=== PATIENT | male | born 1955 | race Caucasian/White ===

== ENCOUNTER 2021-06-24 05:42 | Emergency (ER) | payer MEDICARE, SELFPAY ==
[2021-06-24 05:49] VITALS: BP 184/96; PULSE 76; RESP 20; TEMP 35.9; O2SAT 100; BMI 30.8
--- NOTE | 2021-06-24 06:27 | W.ED.GENADLT ---
HPI - General Adult General: Chief complaint: Urogenital-Male Stated complaint: Discharge and Believes he has STD Time Seen by Provider: 06/24/21 06:15 History of Present Illness: HPI narrative: CC: Penile discharge and urethritis HPI: [65]yo sexually male patient presenting to the new onset thick penile discharge and dysuria x 3 days. Symptoms have not improved since onset. No pruritus or hematuria. Sexually active with 1 partner that was recently tested positive for STI, though unknown. No symptoms of dysuria/hematuria/polyuria. Denies fever/chill, abdominal pain, nausea/vomiting, or problems with bowel movements. Onset: 3days ago Duration: ongoing Location: home Severity: mild/moderate Review of Systems Narrative: Constitutional: No fever, no chills. HEENT: No vision changes CV: No chest pain, no palpitations PULM: No productive cough, no dyspnea. GI: No abdominal pain, no N/V/D. : + penile discharge and dysuria MSKEL: No muscle pain SKIN: No new rashes, no lesions. NEURO: No headache, no focal weakness. HEME: No visible bruises PSYCH: Normal mood Physical Exam Narrative: EXAM NARRATIVE: Head: Atraumatic Eyes: PERRL, conjunctiva without injection, eyes tracking ENT: Mucous membrane moist NECK: Supple without lymphadenopathy LUNGS: LCTAB CV: RRR ABDOMEN: Soft, nontender EXTREMITY: Normal ROM SKIN: No rash or erythema NEURO: Awake and alert. No focal weakness PSYCH: Cooperative mood and affect Exam: No signs of vesicles on the penile shaft/glans, no visible discharge from the external meatus, no glan erythema, no testicular tenderness to palpation, vertical testicular lie, + cremasteric reflex, no inguinal lymphadenopathy Course Vital Signs: Vital signs: Vital Signs Temperature 97.6 F 06/24/21 07:26 Pulse Rate 94 06/24/21 07:26 Respiratory Rate 16 06/24/21 07:26 Blood Pressure 172/96 06/24/21 07:26 Pulse Oximetry 97 06/24/21 07:26 MDM - General Adult MDM Narrative: Medical decision making narrative: [65]yo patient with no significant medical history who presents with dysuria + penile discharge. exam is unremarkable. No visible external lesions. No discharge seen at the penile urethral meatus. Exam and history not consistent with herpes, syphilis, epididymo-orchitis, balanoposthitis, deep space infection, prostatitis, or acute abdomen. Interventions: Ceftriaxone 500mg IM [6:28am] On reassessment, the patient is HDS, afebrile in no acute distress. Findings most likely STI which was discussed with the patient. Patient agrees to follow up on G/C testing. In the ED, the patient has been able to tolerate PO and is ambulating without significant groin pain. Patient declined HSV, Syphilis, and HIV testing today after counseling. Rx doxycycline 100mg BID x 14 days Disposition: Discharge. Counseled regarding safe sex practices and partner notification/testing. Discussed return precautions including safe sex and STI pevention techniques. Given clinic or primary care follow up within 48 hours. Given strict return precautions for any fever/chill, intractable vomiting, dehydration, worsening pain or any new or concerning issues. Discharge Plan Discharge Patient Disposition: Home Clinical Impression: STI (sexually transmitted infection) Condition: Stable Prescriptions: New doxycycline hyclate 100 mg capsule 100 mg PO BID 14 Days Qty: 28 RF: 0 Discharge Orders: Discharge ED (Routine); Ordered 06/24/21 Ordered By: Ann-Marie Umana Discharge Diet: Advance as tolerated Discharge Activity: Resume usual activity Activity Restrictions/Additional Instructions: Please follow up with PCP in 2 weeks for testing for sysphilis, HIV, HSV if symptoms do not improve. Come back if you ahve any issues. Coding Level of Care Code ED Stroke Program Coordinator for Maty Puckett
[2021-06-24 07:26] VITALS: BP 172/96; PULSE 94; RESP 16; TEMP 36.4; O2SAT 97
== END 2021-06-24 07:29 | disposition home or self-care (01) ==
PROVIDERS: Emergency Provider Emergency Medicine
DX: A64 Unspecified sexually transmitted disease (principal)
CPT/HCPCS: 96372; 99283; J0696

== ENCOUNTER → 2023-05-06 13:56 | Outpatient (BNVA) | payer MEDICARE, SELFPAY | PROVIDERS: PCP Family Medicine; Visit Provider Family Medicine | DX: I10 Essential (primary) hypertension (principal) | CPT/HCPCS: 85025; 87491; 87591 ==

== ENCOUNTER → 2023-10-31 13:45 | Outpatient (BNVA) | payer MEDICARE, SELFPAY | PROVIDERS: PCP Family Medicine; Visit Provider Family Medicine | DX: I10 Essential (primary) hypertension (principal) | CPT/HCPCS: 80053; 85025 ==

== ENCOUNTER 2024-05-24 00:33 | Inpatient (IN) | payer MEDICARE, SELFPAY ==
[2024-05-24] VITALS (57 sets, daily range): BP systolic 104–187; BP diastolic 62–122; PULSE 57–94; RESP 10–31; TEMP 35.9–37.1; O2SAT 90–99; BMI 32.1; BMI 33.7
--- NOTE | 2024-05-24 00:32 | ECG_ITS ---
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 Measurements Intervals [place] Rate: 93 P: 65 AR: 203 QRS: 6 QRSD: 122 T: 51 QT: 372 QTc: 463 Interpretive Statements SINUS RHYTHM ST ELEVATION IN LATERAL LEADS WITH ST DEPRESSIONS SEEN IN INFERIOR LEADS. MYOCARDIAL INJURY PATTERN MODERATE INTRAVENTRICULAR CONDUCTION DELAY [110+ ms QRS DURATION] No previous ECG available for comparison Electronically Signed On 05-24-2024 1:35:35 CDT by Liborio Ayon M.D. [id number]
--- NOTE | 2024-05-24 00:45 | XRR_ITS ---
PROCEDURE INFORMATION: Exam: XR Chest Exam date and time: 05/24/2024 12:45 AM Age: 68 years old Clinical indication: Chest pressure; Patient HX: C/O chest pain. Postive st changes. ; Additional info: Cp TECHNIQUE: Imaging protocol: Radiologic exam of the chest. Views: 1 view. COMPARISON: No relevant prior studies available. FINDINGS: Lungs: Unremarkable. No consolidation. Pleural spaces: Unremarkable. No pleural effusion. No pneumothorax. Heart/Mediastinum: Unremarkable. No cardiomegaly. Bones/joints: Unremarkable. XR/XR chest 1V portable [id number] IMPRESSION: No acute findings.
[2024-05-24 01:09] LABS: Basophils % 0.5 %; Eosinophils # 0.3 10^3/uL (0.0-0.8); Eosinophils % 4.4 %; Hematocrit 42.5 % (37-53); Lymphocytes % 31.1 %; Mean Corpuscular HGB Conc 33.6 g/dL (30-55); Mean Corpuscular Hemoglobin 31.6 pg (27-33); Mean Corpuscular Volume 93.8 fl (82-101); Mean Platelet Volume 9.5 fL (7.4-10.4); Monocytes # 0.5 10^3/uL (0.2-0.9); Monocytes % 7.2 %; Neutrophils # 3.72 10^3/uL (1.8-7.7); Neutrophils % 56.6 %; Nucleated Red Blood Cells % 0 %; Platelet Count 249 10^3/cmm (157-399); Red Blood Count 4.53 10^6/uL (3.85-5.65); Red Cell Distribution Width 12.3 % (12.1-15.1); White Blood Count 6.56 10^3/uL (3.29-11.43)
--- NOTE | 2024-05-24 01:11 | W.ED.CHESTPA ---
HPI - Chest Pain General: Chief Complaint: Chest Pain Stated Complaint: Chest Pains Time Seen by Provider: 05/24/24 01:07 History of Present Illness: 68-year-old male with no prior history of coronary disease. He presents with chest discomfort wrapping around his chest and going into his shoulders. It started about an hour and a half prior to arrival. His EKG was done in triage, changes noted by me to be indicative of cardiac ischemia, and Veneer Production Machine Operator was activated. Cardiology was consulted on the patient's arrival after EKG obtained. Related Data Previous Rx's Medication Instructions Recorded cyclobenzaprine 10 mg tablet 10 mg PO BID PRN muscle spasm 90 10/31/23 days #180 tabs sildenafil 100 mg tablet (Viagra) 100 mg PO DAILY PRN sexual 03/10/24 activity #20 tabs Allergies Allergy/AdvReac Type Severity Reaction Status Date / Time No Known Allergies Allergy Verified 05/24/24 00:54 [facility] PFSH: Medical History Osteoarthritis Erectile dysfunction Social History Smoking and tobacco/nicotine status: current every day tobacco/nicotine user cigarettes Physical Exam Const: GENERAL APPEARANCE: cooperative, in distress and ill appearing; not frail appearing HENMT: COMMON NORMALS: normocephalic, atraumatic and Normal external nose present HEAD & SCALP: normocephalic and atraumatic FACE & SINUS: normal facial exam and face symmetric NOSE: Normal external nose present Eye: COMMON NORMALS: Equal, round and reactive pupils present and EOMs intact bilaterally PUPIL: Yes Equal, round and reactive pupils present Neck/C-Spine: GENERAL: Yes trachea midline Chest: CHEST: Yes Symmetrical chest wall rise Resp: COMMON NORMALS: clear to auscultation bilaterally EFFORT & INSPECTION: Yes symmetric chest movement, Yes tachypneic and Yes labored AUSCULTATION: clear to auscultation bilaterally Cardio: COMMON NORMALS: regular rate and regular rhythm RATE: regular rate RHYTHM: regular rhythm GI: COMMON NORMALS: Normal to inspection, nondistended, normoactive bowel sounds present Extremity: COMMON NORMALS: no pedal edema Neuro: LAURIE COMA SCALE: document GCS findings [place] coma scale eye opening: Spontaneous Laurie coma scale verbal response: Orientated [place] coma scale motor response: Obey commands Laurie coma scale total score: 15 SENSORY EXAM: Yes extremities (intact) Psych: COMMON NORMALS: speech normal SPEECH: Yes normal speech Skin: COMMON NORMALS: no rashes or lesions noted GENERAL SKIN EXAM: no rashes or lesions noted Course Vital Signs: Vital signs: Vital Signs Temperature 97.9 F 05/25/24 00:00 Pulse Rate 64 05/25/24 00:00 Respiratory Rate 14 05/25/24 00:00 Blood Pressure 161/81 05/25/24 00:00 Pulse Oximetry 95 05/25/24 00:00 Oxygen Delivery Me thod Room Air 05/25/24 00:00 Oxygen Flow Rate 2 05/24/24 01:17 MDM - Chest Pain Medical Decision Making Currently patient is mildly short of breath. His pain is much improved. He is receiving morphine, Zofran, aspirin. Veneer Production Machine Operator was activated after EKG was completed. Attempting to get second IV access now. The patient has had heparin, Plavix, chewable aspirin. Chest x-ray is nonacute. CBC is normal. Cardiology is at bedside. Lab Data 05/24/24 18:00 05/24/24 18:00 Radiology Impressions Chest X-Ray 05/24/24 00:45 IMPRESSION: No acute findings. Laboratory Results WBC 6.56 10^3/uL (3.29-11.43) 05/24/24 01:03 RBC 4.53 10^6/uL (3.85-5.65) 05/24/24 01:03 Hgb 14.30 g/dL (11.27-16.99) 05/24/24 01:03 Hct 42.5 % (37-53) 05/24/24 01:03 MCV 93.8 fl (82-101) 05/24/24 01:03 MCH 31.6 pg (27-33) 05/24/24 01:03 MCHC 33.6 g/dL (30-55) 05/24/24 01:03 RDW 12.3 % (12.1-15.1) 05/24/24 01:03 Plt Count 249 10^3/cmm (157-399) 05/24/24 01:03 MPV 9.5 fL (7.4-10.4) 05/24/24 01:03 Neut % (Auto) 56.6 % 05/24/24 01:03 Lymph % (Auto) 31.1 % 05/24/24 01:03 Alexander % (Auto) 7.2 % 05/24/24 01:03 Eos % (Auto) 4.4 % 05/24/24 01:03 Baso % (Auto) 0.5 % 05/24/24 01:03 Neut # (Auto) 3.72 10^3/uL (1.8-7.7) 05/24/24 01:03 Lymph # (Auto) 2.0 10^3/uL (0.8-4.8) 05/24/24 01:03 Alexander # (Auto) 0.5 10^3/uL (0.2-0.9) 05/24/24 01:03 Eos # (Auto) 0.3 10^3/uL (0.0-0.8) 05/24/24 01:03 Baso # (Auto) 0.0 10^3/uL (0.0-0.1) 05/24/24 01:03 Nucleated RBC % (auto) 0 % 05/24/24 01:03 Nucleated RBCs # 0.0 /100WBC 05/24/24 01:03 Sodium 138 mmol/L (136-145) 05/24/24 01:03 Potassium 3.8 mmol/L (3.5-5.1) 05/24/24 01:03 Chloride 99 mmol/L (98-107) 05/24/24 01:03 Carbon Dioxide 25 mmol/L (22-29) 05/24/24 01:03 Anion Gap 17.8 (5-19) 05/24/24 01:03 BUN 13 mg/dL (8-23) 05/24/24 01:03 Creatinine 1.1 mg/dL (0.7-1.2) 05/24/24 01:03 GFR Calculation 66.6 mL/min (90-130) L 05/24/24 01:03 Glucose 132 mg/dL (65-115) H 05/24/24 01:03 Calculated Osmolality 288 mOsm/kg (285-295) 05/24/24 01:03 Calcium 9.1 mg/dL (8.5-10.5) 05/24/24 01:03 Troponin T Baseline 22 ng/L (0-15) H 05/24/24 01:03 All radiology interpretation(s) finalized by discharge Discharge Plan Discharge Patient Disposition: Admitted As Inpatient Admit Provider: Liborio Ayon Clinical Impression: STEMI (ST elevation myocardial infarction) Condition: Stable Coding Level of Care Code ED Tire Tester for Maty Puckett
--- NOTE | 2024-05-24 01:13 | P.HP_ITS ---
Providers/Chief Complaint 2 Admitting Physician: Liborio Ayon MD Primary Care Provider: Patrick Samuel MD Chief Complaint: Chest Pains History of Present Illness Andrea Mora is a 68 year old male who has presented with the acute onset substernal chest pain. It is radiating to the arms. Initially was severe and has improved some. EKG showing ST elevation in lateral leads with reciprocal changes in inferior leads. Review of Systems 2 Narrative: CONSTITUTIONAL: No fever chills weight loss or gain or night sweats. [] HEENT: Normocephalic, atraumatic.[] RESPIRATORY: Shortness of breath CARDIOVASCULAR: Chest pain, shortness of breath GI: no nausea vomiting diarrhea. [] SR. PAYROLL MANAGER: No numbness, tingling, weakness or loss of function in any part of the body. [] Medications/Allergies Home Medications Medication Instructions Recorded Confirmed Last Taken Type cyclobenzaprine 10 mg tablet 10 mg PO BID PRN muscle spasm 90 10/31/23 10/31/23 Unknown Rx days #180 tabs sildenafil 100 mg tablet (Viagra) 100 mg PO DAILY PRN sexual 03/10/24 Unknown Rx activity #20 tabs Allergies Allergy/AdvReac Type Severity Reaction Status Date / Time No Known Allergies Allergy Verified 05/24/24 00:54 PFSH Acute 2 PFSH: Medical History Osteoarthritis Erectile dysfunction Social History Smoking and tobacco/nicotine status: current every day tobacco/nicotine user cigarettes Vitals/I&O/Wt Last Vital Signs Temp 98.1 F 05/24/24 00:49 Pulse 94 05/24/24 00:49 Resp 31 H 05/24/24 00:49 BP 179/97 05/24/24 00:49 Pulse Ox 95 05/24/24 00:49 O2 Del Method Room Air 05/24/24 00:49 Weight last 48 hrs Weight 250 lb Physical Exam 2 Narrative: GENERAL: Patient is alert, awake and oriented x3. [] NECK: No jugular vein distension. [] HEENT: No cyanosis. No icterus. No pallor. [] HEART: Regular S1 and S2. No murmur, rub or gallop. [] LUNGS: Clear to auscultate bilaterally. [] CENTRAL NERVOUS SYSTEM: Grossly nonfocal. [] EXTREMITIES: Lower extremities with 1+ edema bilaterally. Data 05/24/24 01:03 05/24/24 01:03 A&P Assessment and plan (1) STEMI (ST elevation myocardial infarction): (2) Essential hypertension: Plan Patient has presented with typical chest pain symptoms with EKG changes consistent with acute lateral wall ST elevation GA. We will proceed with emergent cardiac catheterization with possible PCI. Risks and benefits of the procedure have been discussed with patient. He understands these and wants to proceed. Patient loaded with aspirin, Plavix and heparin bolus. Will order echocardiogram. Attestations 2 Medical Necessity Statement*: Care expected to cross 2 midnights. Patient has presented with acute lateral wall ST elevation GA. 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 Coding Level of Care Code Acute Code for [facility] Diagnoses STEMI (ST elevation myocardial infarction) I21.3 Essential hypertension I10
[2024-05-24] MEDS: heparin 5,000 unit/mL INJ 1 mL 4000 UNIT IVP (01:18)
--- NOTE | 2024-05-24 01:20 | XACV_ITS ---
Exam Room: [facility] Ht: 188 cm Wt: 113 kg BSA: 2.46 m2 Gender: Male : 1955 Any Known Allergies: No known allergies Exam Priority: Routine Procedure(s): Procedure Description: Coronary angiogram Procedure Description: Percutaneous coronary intervention Procedure Description: Diagnostic procedure Procedure Description: PCI procedure Procedure Description: Drug Eluting Coronary Stent Procedure Description: PTCA Procedure Description: Miscellaneous Procedure Description: ACT Procedure Description: Coronary Angiography Suresh PAREDES; Diagnostic Cath Status: Emergency Diagnostic Findings * INDICATION: 68-year-old man who presented with acute onset chest pain. The EKG is consistent with lateral wall ST elevation HI. Cardiac Shop Firer/Fireman emergently activated for cardiac cath with possible PCI. * Left Main has no significant disease. * Circumflex has no significant disease. * Right Coronary Artery has mild luminal irregularities. * Proximal Left Anterior Descending to Mid Left Anterior Descending: moderate 40-50% stenosis, RANJITH: 3 flow. It gives rise to medium sized second diagonal artery that has a 99% stenosis. This is culprit vessel for lateral wall ST elevation HI. * Coronary angiography shows right dominance. PCI Status: Emergency PCI Indication: STEMI - Immediate PCI for STEMI Interventional Findings * Procedure detail: We engaged left main artery with XB 3.5 guide catheter. IV heparin was administered to maintain anticoagulation. 0.014 run-through guidewire was used to cross the subtotally occluded diagonal artery stenosis. We predilated the stenosis with 2.25 x 12 mm semicompliant balloon. This was followed by placement of 2.5 x 12 mm resolute Margaret drug-eluting stent. At this time final angiogram was performed that showed excellent stent expansion, no residual stenosis and RANJITH-3 flow. Guidewire and guide catheter were removed. Patient left the Shop Firer/Fireman in a stable condition.. * 2nd Diagonal: 99% stenosis treated with a AB TREK 2.25X12 RX BALLOON, and MDAden R MARGARET 2.5X12 SUKHI. Conclusions 1. Critical 99% stenosis of second diagonal artery. This is culprit lesion for acute lateral wall ST elevation HI. Status post successful revascularization with 1 stent. 2. Moderate proximal to mid LAD stenosis. Will be assessed for ischemia as outpatient. Recommendations * Dual antiplatelet therapy with aspirin and plavix. * High intensity statin therapy. * Outpatient stress test to assess for ischemia in the LAD territory. * Outpatient cardiology follow up in 1-2 weeks. Interventional RX Recommendation: PCI w/o planned CABG Diagnostic RX Recommendation: PCI w/o planned CABG Anticoagulation: Heparin Pressures Phase:Rest AO : 111 / 71 ( 90 ) @ 4:20:39 AM 131 / 82 ( 106 ) @ 4:20:39 AM Clinical Evaluation EBL: 5mL-10mL Procedural Details Pre-Procedure Time Out. Identified patient by full name and date of as verbalized by the patient/guarantor. Does the consent match the physician's order: N/A Emergent; Informed Consent not obtained due to time critical life threat. Accurate & Complete Informed Consent: N/A Emergent; Informed Consent not obtained due to time critical life threat. Inpatient/Outpatient History & Physical on Chart: N/A Emergent; Informed Consent not obtained due to time critical life threat. If H&P is completed, is and addenduem needed: N/A Emergent; Informed Consent not obtained due to time critical life threat; If yes, is the addendum complete: N/A Emergent; Informed Consent not obtained due to time critical life threat. Visualize and Verify Site with Patient/Guarantor: N/A. Relevant Radiology Images available: N/A Emergent; Informed Consent not obtained due to time critical life threat. Pre-op teaching completed and patient verbalized understanding. The risks, benefits, and alternatives of sedation and/or procedure were discussed by physician. The patient agrees to continue. Procedure started. [facility] Clinical Fraility Score: 3: Managing Well. Shop Firer/Fireman Indications: ACS <= 24 hours. Chest Pain Symptom Assessment: Typical Angina Symptoms. Cardiovascular Instability: Yes, if yes, Persistant Ischemic Symptoms. Correct patient, site and procedure confirmed by cath team. Current diagnosis: STEMI. PERRLA. Strong, equal hand chemical treatment operator bilaterally. Lungs clear x 5 lobes. IV Site on Arrival: 20 gauge in the right anticubital. IV Site on Arrival: 20 gauge in the left anticubital. IV Fluids: 0.9% NaCl at KVO. 0 mL infused prior to section laborer. Oxygen started at 2liters/min via nasal canula. right groin was prepped with chloroprep then draped in the usual sterile fashion. right radial was prepped with chloroprep then draped in the usual sterile fashion. Physician notified. Baseline sample Acquired. HR: 83 BPM. Patient's family unavailable. Equipment: 6F - Radial. Cardiac Cath Pack. ACIST Manifold Kit Model BT 2000. Heparinized Saline (2 units/mL), 1000 mL bag. Physician arrived. Physician scrubbed in. Immediate Pre-Procedure Time Out. Correct Patient: N/A Emergent; Informed Consent not obtained due to time critical life threat; Correct Procedure: N/A Emergent; Informed Consent not obtained due to time critical life threat; Correct Site: N/A Emergent; Informed Consent not obtained due to time critical life threat; Correct Patient Position: N/A Emergent; Informed Consent not obtained due to time critical life threat; Correct Supplies: N/A Emergent; Informed Consent not obtained due to time critical life threat; Dried Flammable Prep: N/A Emergent; Informed Consent not obtained due to time critical life threat; Blood Products Available: N/A Emergent; Informed Consent not obtained due to time critical life threat;. Lidocaine 1% infiltrated to the right radial. Arterial access obtained. 6 djiboutian XB 3.5 guide catheter was inserted over the wire. Multiple views taken of left coronary artery. Runthrough guidewire was advanced through the guide catheter to lesion in the diaganol. Inflation number : 1 A AB TREK 2.25X12 RX BALLOON was prepped and advanced across the 2nd Diag , then inflated to 8 FELY for 0:19 seconds. Balloon out. Results checked. Inflation Number : 2 A HEATHER Desouza MARGARET 2.5X12 SUKHI -Lot Number# [id number] was prepped and advanced across the 2nd Diag. The stent was deployed at 12 FELY for 0:16 seconds. Exp 2026-12-31. Stent balloon out over wire. Results checked. PCI Indication : Immediate PCI for STEMI. Wire out. Guide catheter out. A 5 djiboutian JR4 catheter in over wire. ACT drawn. Results 270 seconds. Therapeutic limits - pre-heparin administration 90-150 seconds and monitoring heparin during a vascular procedure >250 seconds. Catheter removed over the exchange wire. A 5 djiboutian 125 cm JR4 catheter in over wire. Multiple views taken of right coronary artery. Catheter removed over the exchange wire. Physician scrubbed out. A TR Band was successful obtaining hemostatsis at the Right Radial artery insertion site. Post Procedure: right radial pulse 2+. PERRLA. Strong, equal hand chemical treatment operator bilaterally. No VTE prophylaxis required. Medication's Wasted: Lidocaine 1% = 18 mL. Medication's Wasted: Nitro = 49.6 mg. Medication's Wasted: Heparin = 4000 units. Medication's Wasted: Other = Versed 1 mg. Medication's Wasted: Other = Fentanyl 50 mcg. Total IV fluids: 60 mL. PCI Indication: STEMI. Post-op diagnosis: PCI of the 2nd diagonal. Complications: none. Estimated blood loss: 5mL-10mL. Responsiveness - Normal response to verbal stimuli; alert and oriented, PERRLA. Airway - Unaffected, no intervention required; spontaneous ventilation. Circulation: W/N/L, pulses unchanged. Nausea/Vomiting: No. Procedure completed. Patient transferred by bed to ICU. Vital chart was stopped. Access Site Site: Right Radial artery Sheath Size: 6 Fr Hemostasis Method: TR Band Hemostasis Success: Successful Procedure Medications Start: 1:58 AM Stop: 1:58 AM Medication: Heparin Amount: 6000 units Route: I.V. Start: 2:05 AM Stop: 2:05 AM Medication: Nitrogylcerin Amount: 200 mcg Route: I.C. Start: 1:44 AM Stop: 1:44 AM Medication: Nitrogylcerin Amount: 200 mcg Route: I.A. Start: 1:43 AM Stop: 1:43 AM Medication: Versed Amount: 1 mg Route: I.V. Start: 1:43 AM Stop: 1:43 AM Medication: Fentanyl Amount: 50 mcg Route: I.V. Start: 2:13 AM Stop: 2:13 AM Medication: Heparin Amount: 1000 units Route: I.V. I, the attending physician, have reviewed and verified all procedure medications. Yes, all medications given per verbal order Report Signatures Finalized by Liborio Ayon MD on 05/26/2024 12:00 PM
[2024-05-24] MEDS: clopidogrel 300 mg Tablet 600 MG PO (01:21)
[2024-05-24] MEDS: aspirin 81 mg Chew Tablet 324 MG PO (01:21)
[2024-05-24] MEDS: ondansetron 2 mg/ML SDV 2 mL 4 MG IVP (01:22)
[2024-05-24] MEDS: morphine 4 mg/mL SDV 1 mL IVP (01:23)
[2024-05-24 01:28] LABS: Troponin(5th) Baseline 22 ng/L (0-15)
[2024-05-24 01:31] LABS: Blood Urea Nitrogen 13 mg/dL (8-23); Calcium 9.1 mg/dL (8.5-10.5); Carbon Dioxide 25 mmol/L (22-29); Chloride 99 mmol/L (98-107); Glomerular Filtration Rate 66.6 mL/min (90-130); Glucose 132 mg/dL (65-115); Osmolality Calculated 288 mOsm/kg (285-295); Sodium 138 mmol/L (136-145)
[2024-05-24 01:32] LABS: Anion Gap 17.8 (5-19); Potassium 3.8 mmol/L (3.5-5.1)
--- NOTE | 2024-05-24 02:43 | ECG_ITS ---
[facility] Test Date: 2024-05-24 Pat Name: Andrea Mora Department: Room: [facility] Gender: Male Mental Health Unit Lead Psychologist: : 1955 Requested By: Lc Novak Order Number: [id number] Consuelo MD: Liborio Ayon M.D. Measurements Intervals [place] Rate: 80 P: 0 NH: 0 QRS: 78 QRSD: 124 T: 81 QT: 401 QTc: 465 Interpretive Statements SINUS RYHYTHM Compared to ECG 05/24/2024 00:32:53 Myocardial injury no longer seen Sinus rhythm no longer present Intraventricular conduction delay no longer present Electronically Signed On 05-24-2024 14:30:21 CDT by Liborio Ayon M.D. [id number]
[2024-05-24] MEDS: sodium chloride 0.9% 1,000 ML 75 ML IV ×2 (03:06→17:38)
--- NOTE | 2024-05-24 04:25 | PC.NURSE ---
Elevated BP: Patient's BP was elevated at 170s-160s systolic. Dr. Manriquez gave verbal orders for 25mg hydralazine PO ONCE.
[2024-05-24] MEDS: hyDRALAzine 25 mg Tablet PO (04:34)
--- NOTE | 2024-05-24 05:54 | ECG_ITS ---
[facility] Test Date: 2024-05-24 Pat Name: Andrea Mora Department: Room: 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 Measurements Intervals [place] Rate: 72 P: 85 IA: 233 QRS: 107 QRSD: 131 T: 99 QT: 411 QTc: 451 Interpretive Statements SINUS RHYTHM WITH FIRST DEGREE AV BLOCK RIGHT AXIS DEVIATION [QRS AXIS > 100] INTRAVENTRICULAR CONDUCTION DELAY [130+ ms QRS DURATION] Compared to ECG 05/24/2024 02:43:52 First degree AV block now present Right-axis deviation now present Intraventricular conduction delay now present Atrial flutter no longer present Myocardial infarct finding no longer present Electronically Signed On 05-24-2024 14:29:10 CDT by Liborio Ayon M.D. [id number]
--- NOTE | 2024-05-24 05:58 | PC.NURSE ---
T changes: Patient's telemetry showed an elevation in T wave. Dr. Manriquez was notified and gave verbal orders to perform an EKG. Dr. Manriquez was at bedside when EKG was performed and interpreted it.
--- NOTE | 2024-05-24 05:59 | PC.NURSE ---
TR band: Patient's TR band (R wrist) was deflated 2mL at a time starting at 0330 then increased to 4mL at a time. 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 A 2x2 gauze and tegaderm was placed over insertion site.
[2024-05-24] MEDS: aspirin 81 mg EC Tablet PO (08:29)
[2024-05-24] MEDS: metoprolol tartrate 50 mg Tablet 25 MG PO (08:29)
[2024-05-24] MEDS: clopidogrel 75 mg Tablet PO (08:29)
--- NOTE | 2024-05-24 09:55 | USCV_ITS ---
Andrea Mora Age: 68 Gender: M : 1955 Exam Date: 05/24/2024 15:25 Ordering Phys: Liborio Ayon M.D ([email or web address]) Technologist: Glenn Schulz [place]am [place] [facility] [place]: stemi BP: 89 / 65 HR: 61 Rhythm: Sinus Technical Quality: Adequate MEASUREMENTS (Male / Female) Normal Values 2D ECHO LV Diastolic Diameter PLAX 4.5 cm 4.2 - 5.9 / 3.9 - 5.3 cm IVS Diastolic Thickness 1.5 cm 0.6 - 1.0 / 0.6 - 0.9 cm IVS Systolic Thickness 1.6 cm LVPW Diastolic Thickness 2.5 cm 0.6 - 1.0 / 0.6 - 0.9 cm LVPW Systolic Thickness 2.6 cm LVOT Diameter 2.1 cm LV Ejection Fraction 2D Teich 72.4 % LV Ejection Fraction MOD 4C 66.2 % LV Ejection Fraction MOD 2C 57.8 % LV Ejection Fraction 2C AL 58.6 % LA Diameter 4.4 cm RA Systolic Volume 4C AL 40.0 ml RA Systolic Volume 4C MOD 39.7 ml LA Sys Volume AL 45.5 cm cubed LA Sys Volume Index AL 23.1 cm cubed/m squared Aorta at Sinotubular Diameter 2.2 cm IVC Diameter 1.7 cm M-MODE LA Ao Ratio MM 0.8 AV Cusp Separation MM 1.8 cm DOPPLER AV Peak Velocity 117.0 cm/s LVOT Peak Velocity 84.0 cm/s AV Area Cont Eq vti 2.2 cm squared AV Area Cont Eq pk 2.6 cm squared MV Peak Velocity 77.0 cm/s MV Area PHT 3.9 cm squared Mitral E to A Ratio 0.9 PV Peak Velocity 70.0 cm/s RV Ejection Time 0.4 s FINDINGS Left Ventricle Left ventricle is normal in size. LV systolic function is normal with EF of 55 to 60%. Mild hypokinesis of anterolateral wall. Right Ventricle The right ventricle is normal in size and function. Right Atrium The right atrium is normal in size. Left Atrium The left atrium is normal in size. Mitral Valve Trace mitral regurgitation is seen.Structurally normal mitral valve. Aortic Valve Structurally normal aortic valve. There is no aortic regurgitation or stenosis. Tricuspid Valve Insufficient TR jet to calculate RVSP. Pulmonic Valve Not well-visualized Pericardium Normal pericardium without effusion. Aorta Normal ascending aorta dimension. IVC The inferior vena cava appears normal. CONCLUSIONS LV systolic function is normal with EF of 55 to 60%. Above mentioned regional wall motion abnormality. Trace mitral regurgitation No comparison studies are available. Liborio Ayon MD (Electronically Signed) Final Date: 25 May 2024 08:34 S
[2024-05-24] MEDS: losartan 50 mg Tablet PO (10:24)
[2024-05-24] MEDS: amlodipine 10 mg Tablet PO (10:24)
--- NOTE | 2024-05-24 12:06 | PM.MISC ---
Miscellaneous Note Purpose of Documentation: Brief note Note: Patient's coronary angiogram showed critical 99% diagonal artery stenosis that was culprit lesion for ST elevation [place]. Had successful revascularization with 1 stent. His blood pressure was high. We will continue with dual antiplatelet therapy. Have started him on losartan and amlodipine. Continue metoprolol.
[2024-05-24] MEDS: metoprolol tartrate 50 mg Tablet PO (17:38)
[2024-05-24 18:08] LABS: Basophils % 0.7 %; Eosinophils # 0.3 10^3/uL (0.0-0.8); Eosinophils % 4.9 %; Hematocrit 46.7 % (37-53); Lymphocytes # 1.3 10^3/uL (0.8-4.8); Lymphocytes % 24.7 %; Mean Corpuscular HGB Conc 31.7 g/dL (30-55); Mean Corpuscular Hemoglobin 31.7 pg (27-33); Mean Platelet Volume 9.8 fL (7.4-10.4); Monocytes # 0.4 10^3/uL (0.2-0.9); Monocytes % 7.5 %; Neutrophils # 3.31 10^3/uL (1.8-7.7); Nucleated Red Blood Cells % 0 %; Platelet Count 139 10^3/cmm (157-399); Red Blood Count 4.67 10^6/uL (3.85-5.65); Red Cell Distribution Width 12.3 % (12.1-15.1); White Blood Count 5.34 10^3/uL (3.29-11.43)
[2024-05-24 18:26] LABS: Blood Urea Nitrogen 12 mg/dL (8-23); Calcium 9.2 mg/dL (8.5-10.5); Carbon Dioxide 26 mmol/L (22-29); Chloride 101 mmol/L (98-107); Glomerular Filtration Rate 96.1 mL/min (90-130); Glucose 102 mg/dL (65-115); Osmolality Calculated 288 mOsm/kg (285-295); Sodium 139 mmol/L (136-145)
[2024-05-24 18:48] LABS: Anion Gap 16.3 (5-19); Potassium 4.3 mmol/L (3.5-5.1)
[2024-05-24] MEDS: atorvastatin 40 mg Tablet 80 MG PO (20:01)
[2024-05-24] MEDS: diazePAM 5 mg Tablet 10 MG PO (20:57)
[2024-05-25] VITALS (18 sets, daily range): BP systolic 124–174; BP diastolic 67–93; PULSE 54–70; RESP 8–26; TEMP 36.6–36.8; O2SAT 92–100; BMI 33.4
[2024-05-25 05:00] LABS: Basophils % 0.7 %; Eosinophils # 0.4 10^3/uL (0.0-0.8); Hematocrit 48.6 % (37-53); Lymphocytes # 1.4 10^3/uL (0.8-4.8); Lymphocytes % 22.5 %; Mean Corpuscular HGB Conc 32.7 g/dL (30-55); Mean Corpuscular Hemoglobin 31.7 pg (27-33); Mean Platelet Volume 9.7 fL (7.4-10.4); Monocytes # 0.6 10^3/uL (0.2-0.9); Monocytes % 9.3 %; Neutrophils # 3.76 10^3/uL (1.8-7.7); Neutrophils % 61.3 %; Nucleated Red Blood Cells % 0 %; Platelet Count 274 10^3/cmm (157-399); Red Blood Count 5.01 10^6/uL (3.85-5.65); Red Cell Distribution Width 12.4 % (12.1-15.1); White Blood Count 6.13 10^3/uL (3.29-11.43)
[2024-05-25 05:19] LABS: Blood Urea Nitrogen 11 mg/dL (8-23); Calcium 8.7 mg/dL (8.5-10.5); Carbon Dioxide 23 mmol/L (22-29); Chloride 102 mmol/L (98-107); Creatinine Clr Calc Pharmacy 107.6889; Glomerular Filtration Rate 83.9 mL/min (90-130); Glucose 90 mg/dL (65-115); Osmolality Calculated 283 mOsm/kg (285-295); Sodium 137 mmol/L (136-145)
[2024-05-25 05:20] LABS: Anion Gap 16.7 (5-19); Potassium 4.7 mmol/L (3.5-5.1)
[2024-05-25] MEDS: aspirin 81 mg EC Tablet PO (08:35)
[2024-05-25] MEDS: amlodipine 10 mg Tablet PO (08:35)
[2024-05-25] MEDS: clopidogrel 75 mg Tablet PO (08:35)
[2024-05-25] MEDS: losartan 50 mg Tablet PO (08:35)
[2024-05-25] MEDS: metoprolol tartrate 50 mg Tablet PO (08:36)
--- NOTE | 2024-05-25 08:38 | P.DS_ITS ---
Discharge Providers Date of Admission: 05/24/24 02:43 Date of Discharge: May 25, 2024 Attending Provider at Admission: Liborio Ayon M.D Attending Provider at Discharge: Liborio Ayon M.D Primary Care Provider: Patrick Samuel MD Diagnoses at Discharge Discharge Diagnosis (1) STEMI (ST elevation myocardial infarction): Status: Acute (2) Essential hypertension: Status: Acute Reason for Visit Reason for Visit: Chest Pains Brief History: 68-year-old man with no significant prio r cardiac history presented with acute onset of chest discomfort. EKG was consistent with lateral wall ST elevation [place]. He was emergently taken to the cardiac [facility]. Hospital Course Hospital Course Coronary angiogram demonstrated subtotal 99% stenosis of diagonal artery. This was culprit lesion for ST elevation [place]. He underwent successful revascularization with 1 stent. He has a moderate proximal to mid LAD stenosis. Will need outpatient stress test for assessing ischemia in that territory. Patient stayed chest pain free and discharged home on dual antiplatelet therapy and antihypertensive medications as his blood pressure was uncontrolled in the hospital. Physical Exam Narrative: GENERAL: Patient is alert, awake and oriented x3. [] NECK: No jugular vein distension. [] HEENT: No cyanosis. No icterus. No pallor. [] HEART: Regular S1 and S2. No murmur, rub or gallop. [] LUNGS: Clear to auscultate bilaterally. [] CENTRAL NERVOUS SYSTEM: Grossly nonfocal. [] EXTREMITIES: Lower extremities with 1+ edema bilaterally. Discharge Data Studies Completed and Pending Completed Studies During Hospitalization Category Date Time Status XR chest 1V portable [id number] Stat Exams 05/24/24 00:45 Completed CV. 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 Laboratory Results WBC 6.13 10^3/uL (3.29-11.43) 05/25/24 04:16 RBC 5.01 10^6/uL (3.85-5.65) 05/25/24 04:16 Hgb 15.90 g/dL (11.27-16.99) 05/25/24 04:16 Hct 48.6 % (37-53) 05/25/24 04:16 MCV 97.0 fl (82-101) 05/25/24 04:16 MCH 31.7 pg (27-33) 05/25/24 04:16 MCHC 32.7 g/dL (30-55) 05/25/24 04:16 RDW 12.4 % (12.1-15.1) 05/25/24 04:16 Plt Count 274 10^3/cmm (157-399) D 05/25/24 04:16 MPV 9.7 fL (7.4-10.4) 05/25/24 04:16 Neut % (Auto) 61.3 % 05/25/24 04:16 Lymph % (Auto) 22.5 % 05/25/24 04:16 [place] % (Auto) 9.3 % 05/25/24 04:16 Eos % (Auto) 6.0 % 05/25/24 04:16 Baso % (Auto) 0.7 % 05/25/24 04:16 Neut # (Auto) 3.76 10^3/uL (1.8-7.7) 05/25/24 04:16 Lymph # (Auto) 1.4 10^3/uL (0.8-4.8) 05/25/24 04:16 [place] # (Auto) 0.6 10^3/uL (0.2-0.9) 05/25/24 04:16 Eos # (Auto) 0.4 10^3/uL (0.0-0.8) 05/25/24 04:16 Baso # (Auto) 0.0 10^3/uL (0.0-0.1) 05/25/24 04:16 Nucleated RBC % (auto) 0 % 05/25/24 04:16 Nucleated RBCs # 0.0 /100WBC 05/25/24 04:16 Sodium 137 mmol/L (136-145) 05/25/24 04:16 Potassium 4.7 mmol/L (3.5-5.1) 05/25/24 04:16 Chloride 102 mmol/L (98-107) 05/25/24 04:16 Carbon Dioxide 23 mmol/L (22-29) 05/25/24 04:16 Anion Gap 16.7 (5-19) 05/25/24 04:16 BUN 11 mg/dL (8-23) 05/25/24 04:16 Creatinine 0.9 mg/dL (0.7-1.2) 05/25/24 04:16 GFR Calculation 83.9 mL/min (90-130) L 05/25/24 04:16 Glucose 90 mg/dL (65-115) 05/25/24 04:16 Calculated Osmolality 283 mOsm/kg (285-295) L 05/25/24 04:16 Calcium 8.7 mg/dL (8.5-10.5) 05/25/24 04:16 Troponin T Baseline 22 ng/L (0-15) H 05/24/24 01:03 Vitals Last Vital Signs Temp 98.2 F 05/25/24 07:52 Pulse 58 L 05/25/24 07:52 Resp 16 05/25/24 07:52 BP 126/88 05/25/24 08:35 Pulse Ox 92 05/25/24 07:52 O2 Del Method Room Air 05/25/24 07:52 O2 Flow Rate 2 05/24/24 01:17 Discharge Plan Discharge Patient Disposition: Home Condition: Stable Prescriptions: New losartan 50 mg Tablet 50 mg PO DAILY Qty: 90 3RF atorvastatin 40 mg Tablet 80 mg PO BEDTIME Qty: 90 3RF clopidogrel 75 mg Tablet 75 mg PO DAILY Qty: 90 3RF aspirin 81 mg Tablet,Delayed Release (Dr/Ec) 81 mg PO DAILY Qty: 90 3RF amlodipine 10 mg Tablet 10 mg PO DAILY Qty: 90 3RF metoprolol tartrate 50 mg Tablet 50 mg PO BID Qty: 120 3RF Continued cyclobenzaprine 10 mg tablet 10 mg PO BID PRN (Reason: muscle spasm) 90 Days Qty: 180 3RF sildenafil [Viagra] 100 mg tablet 100 mg PO DAILY PRN (Reason: sexual activity) Qty: 20 3RF Rx Instructions: administer 30 minutes to 4 hours before activity Discharge Orders: Discharge Order (Routine); Ordered 05/25/24 Ordered By: Liborio Ayon Referrals: Tia Mcclendon FNP [Nurse Practitioner] - 7-10 days Discharge Diet: Cardiac Discharge Activity: Increase activity as tolerated Patient Instructions: Metoprolol (By mouth), Aspirin (By mouth), Amlodipine (By mouth), Losartan (By mouth), Atorvastatin (By mouth), Clopidogrel (By mouth), Heart Attack (DC), Heart Healthy Diet (DC), Coronary Intravascular Stent Placement (DC), Opioid Safety, Post Angiogram Home Care Instructions Discharge Attestations Time Spent in Discharge Care*: less than 30 min Quality Metrics Clinical Quality Measures [ Acute Myocardial Infaction { Clinical Trial Participant: No; Contraindication to aspirin: None; Aspirin prescribed; Contraindication to statin: None; Statin prescribed; Contraindication to PCI: None; PCI performed;}] Coding Level of Care Code Acute Code for [facility] Fwd Diagnoses STEMI (ST elevation myocardial infarction) I21.3 Essential hypertension I10
--- NOTE | 2024-05-25 10:33 | PC.NURSE ---
Patient was discharged per providers orders. Patient drove himself to the ED and his truck is outside the ED department. Patient states understanding of discharge orders. 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
--- NOTE | 2024-05-25 13:08 | PC.SOCIAL ---
IMM update Pg. 2 of IMM updated and reviewed with patient, who verbalized understanding. Copy provided.
== END 2024-05-25 10:13 | disposition home or self-care (01) | DRG 322 ==
LOC: ER 01:07 → CDL 01:20 → ICU 02:43
PROVIDERS: Internal Medicine; Admitting Provider Internal Medicine; Emergency Provider Emergency Medicine; PCP Family Medicine; Visit Provider Internal Medicine
PROC: 027034Z Dilation of Coronary Artery, One Artery with Drug-eluting Intraluminal Device, Percutaneous Approach (ICD-10-PCS; principal; 2024-05-24 01:30)
PROC: 027034Z Dilation of Coronary Artery, One Artery with Drug-eluting Intraluminal Device, Percutaneous Approach (ICD-10-PCS; 2024-05-24 01:30)
DX: I21.02 ST elevation (STEMI) myocardial infarction involving left anterior descending coronary artery (principal); M19.90 Unspecified osteoarthritis, unspecified site; N52.9 Male erectile dysfunction, unspecified; F17.210 Nicotine dependence, cigarettes, uncomplicated; I10 Essential (primary) hypertension
CPT/HCPCS: 36415; 71045; 80048; 84484; 85025; 85347; 93005; 93306; 93454; 96374; 96375; 96376; 99152; 99153; 99285; C1725; C1769; C1874; C1887; C1894; C9600; J1644; J2250; J2270; J2405; J3010; J3490; J7030; Q9967

== ENCOUNTER → 2024-06-02 15:30 | Outpatient (BNVA) | payer MEDICARE, SELFPAY | PROVIDERS: PCP Family Medicine; Visit Provider Nurse Practitioner Family | DX: I25.2 Old myocardial infarction (principal); F17.210 Nicotine dependence, cigarettes, uncomplicated | CPT/HCPCS: 99214 ==

== ENCOUNTER → 2024-07-22 14:52 | Outpatient (BNVA) | payer MEDICARE, SELFPAY | PROVIDERS: PCP Family Medicine; Visit Provider Internal Medicine Cardiovascular Disease | DX: I25.2 Old myocardial infarction (principal); I10 Essential (primary) hypertension; E78.5 Hyperlipidemia, unspecified; J44.9 Chronic obstructive pulmonary disease, unspecified; F17.210 Nicotine dependence, cigarettes, uncomplicated | CPT/HCPCS: 99214 ==

== ENCOUNTER 2024-08-12 09:33 | Outpatient (CLI) | payer MEDICARE, SELFPAY ==
--- NOTE | 2024-08-12 10:44 | ECG_ITS ---
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 Interpretive Statements EXERCISE MIBI EXERCISE DATA: The patient was exercised by Juan protocol. Baseline heart rate [id number] beats per minute. Baseline blood pressure rrn660/81 millimeters of mercury. Maximal predicted heart rate was 152 beats per minute. Maximum heart rate achieved was 149 , which was 98% of the maximum predicted heart rate. Maximum blood pressure was 169/85 millimeters of mercury. Total exercise time was 3 minutes and 1 second. Maximum METs achieved was 4.6 The reason for ending the test was maximal effort achieved. The patient complained of shortness of breath during the stress test, which then resolved at the end of the test. ELECTROCARDIOGRAM: BASELINE: Showed sinus rhythm, normal axis, no significant ST-T changes at the baseline noted. [] EXERCISE: At the peak exercise level, [] No significant ST-T changes suggestive of ischemia noted. [] RECOVERY: During the recovery period, heart rate dropped appropriately. No significant ST-T changes in the recovery suggestive of ischemia noted. [] CONCLUSION: 1. Exercise capacity is poor 2. Heart rate response was appropriate 3. Blood pressure response was appropriate 4. Symptoms not suggestive of ischemia. 5. Electrocardiogram portion of the stress test was not suggestive of ischemia. 6. Nuclear scan will be documented separately. Electronically Signed On 08-23-2024 19:31:59 CABINET MOUNTER by Liborio Ayon M.D. [email or web address]
--- NOTE | 2024-08-12 10:44 | NMCV_ITS ---
NM nilesh perf SPECT r/s* [id number] Andrea Mora Age: 68 Gender: M : 1955 Exam Date: 08/12/2024 10:57 Ordering Phys: Tia Mcclendon Technologist: BIRD Sow Exam Location: [facility] Indications: CP STRESS TEST Please see separate stress test report in [facility] for full findings IMAGE PROTOCOL Rest/Stress 1 Exercise Day Radiopharmaceutical Dose (mCi) Administration Site Administered by Rest: Tc-99m 10.0 IV BIRD Loaiza Sestamibi Stress:Tc-99m 30.3 IV BIRD Loaiza Sestamibi Rest: 12-Aug-2024 60 Discovery 630 Stress: 12-Aug-2024 30 Discovery 630 0.4mg Lexiscan. Images obtained in supine and prone position. SPECT RESULTS Technical Quality: Good Raw Data Analysis: Normal Image Corrections: No attenuation or motion correction applied Summed Stress Score: 4 Summed Rest Score: 9 Summed Difference Score: 0 PERFUSION FINDINGS There is reduced radiotracer uptake in inferior wall that improves on stress imaging. This is consistent with attenuation artifact. No evidence of ischemia. FUNCTIONAL RESULTS (calculated via Gated SPECT) Stress Image LV EF (%): 82 Stress EDV (mL):92 TID: 0.75 Stress ESV (mL):17 FUNCTIONAL FINDINGS: There is normal left ventricular systolic function. IMPRESSIONS 1. Attenuation artifact seen in the inferior wall. No evidence of ischemia 2. LV systolic function is normal. Liborio Ayon MD (Electronically Signed) Final Date: 13 August 2024 11:52 S
--- NOTE | 2024-08-12 11:48 | ECG_ITS ---
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1955 Requested By: Liborio Ayon Order Number: [id number] Reading MD: JAYLA PAIGE Measurements Intervals [place] Rate: 102 P: 74 [place]: 212 QRS: 114 QRSD: 126 T: 25 QT: 368 QTc: 481 Interpretive Statements SINUS TACHYCARDIA WITH FIRST DEGREE AV BLOCK POSSIBLE RIGHT VENTRICULAR HYPERTROPHY [SOME/ALL OF: PROMINENT R IN V1, LATE TRANSITION, RAD, VIVIANA, SSS] INTERPRETATION BASED ON A DEFAULT AGE OF 40 YEARS Compared to ECG 05/24/2024 05:54:38 Sinus rhythm no longer present Right-axis deviation no longer present Intraventricular conduction delay no longer present Electronically Signed On 08-12-2024 17:19:57 PROVER by JAYLA PAIGE [id number]
[2024-08-12 12:07] VITALS: BP 163/59; PULSE 120
== END 2024-08-12 09:34 | disposition home or self-care (01) ==
PROVIDERS: PCP Family Medicine; Visit Provider Nurse Practitioner Family
DX: I21.3 ST elevation (STEMI) myocardial infarction of unspecified site (principal); R06.02 Shortness of breath; I44.0 Atrioventricular block, first degree
CPT/HCPCS: 36415; 78452; 93005; 93017; A9500

== ENCOUNTER 2025-03-16 23:05 | Emergency (ER) | payer MEDICARE, SELFPAY ==
[2025-03-16 23:08] VITALS: BP 109/70; PULSE 92; RESP 17; TEMP 36.4; O2SAT 96; BMI 32.1
--- OUTSIDE RECORDS SUMMARY | 2025-03-16 23:15 | XMS_ITS | Patient Health Record ---
Author Organization [facility] Address [address] [place] [address] Care Team Providers Care Pit Clerk Name Role Phone Phoenix Dillard Unavailable [phone] Allergies Allergen (clinical drug ingredient) Drug/Non Drug Allergy documented on EMR Reaction Allergy Type Onset Date Status tramadol Tramadol itching Drug Allergy Active Reason For Referral No Information Medications Medication SIG (Take, Route, Frequency, Duration) Notes Start Date End Date Status Finasteride 5 MG Take 1 tablet(s) by mouth daily Oral for 30 Finasteride 5mg Tablet Take 1 tablet(s) by mouth daily #30 (Thirty) tablet(s) 10/08/2013 Active Acetaminophen / Hydrocodone Acetaminophen / Hydrocodone 04/22/2015 Active Tamsulosin HCl 0.4 MG Take 1 capsule(s) by mouth daily Oral for 30 Tamsulosin HCl 0.4mg Capsules Take 1 capsule(s) by mouth daily #30 (Thirty) capsule(s) 08/27/2013 Active Problems Problem Type SNOMED Code ICD Code Onset Dates Problem Status W/U Status Risk Notes Problem Sebaceous cyst (311381909) Sebaceous cyst (706.2) 11/20/19 14 Active confirmed [id number]- Problem Slowing of urinary stream (05640522) Slowing of urinary stream (788.62) 05/12/20 14 Active confirmed [id number]- Problem Chronic hepatitis C (069277415) Chronic hepatitis C (070.54) 12/26/19 13 Active confirmed [id number]- Problem Seborrhea (85841763) Seborrhea (706.3) 11/25/19 13 Problem resolved confirmed [id number] 11- Problem Memory loss (18553882) Memory loss (780.93) 05/12/20 14 Problem resolved confirmed [id number] 11- Problem Elevated PSA (595434751) Elevated prostate specific antigen (PSA) (790.93) 12/26/19 13 Problem resolved confirmed [id number] 11- Problem Rash (402045854) Rash (782.1) 11/04/19 14 Problem resolved confirmed [id number] 11- Problem Low back pain (593680504) Low back pain (724.2) 11/04/19 14 Problem resolved confirmed [id number] 11- Problem Urgent desire to urinate (45130866) Frequent. urgent need to urinate (788.63) 08/27/20 13 Problem resolved confirmed [id number] 11- Problem Closed fracture of multiple ribs (61496085) Closed rib fracture, of multiple unspecified ribs (807.09) 11/09/19 17 Problem resolved confirmed [id number] 11- Problem Disorder of hematopoietic system (61329369) Other abnormal findings on blood examination (790.99) 01/23/20 17 Problem resolved confirmed [id number] 11- Problem Hand pain (19651564) Hand pain (729.5) 08/27/20 13 Problem resolved confirmed [id number] 11- Problem Insomnia (556316780) Insomnia (307.41) 11/20/19 14 Problem resolved confirmed [id number] 11- Problem Thyroid nodule (797961332) Thyroid nodule (241.0) 11/09/19 17 Problem resolved confirmed [id number] 11- Problem Tobacco user (659791039) Tobacco abuse affecting health (305.1) 08/27/20 13 Problem resolved confirmed [id number] 11- Problem Benign prostatic hypertrophy (130400569) BPH (600.00) 10/08/19 14 Problem resolved confirmed [id number] 11- Problem Allergic rhinitis caused by pollen (01831759) Allergic rhinitis, pollen-induced (477.0) 01/20/20 13 Problem resolved confirmed [id number] 11- Problem Amphetamine abuse, continuous (000626045) Amphetamine abuse, continuous (305.71) 11/23/19 17 Problem resolved confirmed [id number] 11- Problem Amphetamine dependence, 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) 01/20/20 13 Problem resolved confirmed [id number] 11- Problem Nondependent alcohol abuse, continuous (992406402) Alcohol abuse, continuous (305.01) 11/23/19 17 Problem resolved confirmed [id number] 11- Problem Psychosexual dysfunction associated with inhibited sexual excitement (661014521395850 ) Difficulty with erection (302.72) 11/25/19 13 Problem resolved confirmed [id number] 11- Problem Gynecomastia (7743772) Gynecomastia (611.1) 05/12/20 14 Problem resolved confirmed [id number] 11- Problem COPD - Chronic obstructive pulmonary disease (91485503) COPD (496) 12/18/19 17 Problem resolved confirmed [id number] 11- Problem Hip pain (11067644) Hip pain (719.45) 11/25/19 13 Problem resolved confirmed [id number] 11- Problem Finger pain (56129834) Finger pain (729.5) 12/18/19 17 Problem resolved confirmed [id number] 11- Problem Neoplasm of uncertain behavior of connective and other soft tissues (82118855) Unspecified skin lesion (239.2) 05/12/20 14 Problem resolved confirmed [id number] 11- Problem Peripheral vascular disease (238242824) Acrocyanosis Secondary to amphetamine abuse and COPD (443.89) 12/18/19 17 Problem resolved confirmed [id number] 11- Plan Of Treatment No Information Medical (General) History Surgical History Surgery Date(Month/Year) Other Surgeries:Fracture Rep air: left hip, left patella, right arm, left elbow;
--- OUTSIDE RECORDS SUMMARY | 2025-03-16 23:15 | XMS_ITS | Clinical Summary ---
Author Organization [facility] Address [address] [place] [address] Phone Care Team Providers Care Vehicle Painter Name Role Phone Unavailable Primary Care Provider Unavailabl e Allergies No known active allergies Medications No known medications Active Problems Problem Noted Date Diagnosed Date Contusion of eyelids and periocular area 009 Eye injury 12/10/2008 Wrist fracture 12/10/2008 Fracture of Hand, Right 12/10/2008 Substance abuse 12/10/2008 Localized traumatic opacities of cataract 2008 Conjunctival hemorrhage 12/10/2008 Superficial injury of cornea 12/10/2008 Family History Medical History Relation Name Comments Heart Disease Father Cancer Mother Healthy Son Relation Name Status Comments Father Mother Son Alive Social History Tobacco Use Types Packs/Day Years Used Date Smoking Tobacco: Every Day Cigarettes 1 38 Comments:Cut back to 1/3 ppd now Alcohol Use Standard Drinks/Week Comments No 0 (1 standard drink = 0.6 oz pur e alcohol) pretty heavy x 20 years Sex and Gender Information Value Date Recorded Sex Assigned at Not on file 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 Gender Identity Not on file Sexual Orientation Not on file Last Filed Vital Signs Vital Sign Reading Time Taken Comments Blood Pressure 159/90 12/17/2008 4:40 PM CDT Pulse 93 12/17/2008 4:40 PM CDT Temperature 35.1 C (95.2 F) 12/17/2008 3:59 PM CDT Respiratory Rate 18 12/17/2008 4:40 PM CDT Oxygen Saturation 100% 12/17/2008 4:40 PM CDT Inhaled Oxygen Concentration - - Weight 103 kg (227 lb) 12/17/2008 11:31 AM CDT Height 188 cm (6' 2 ) 12/17/2008 11:31 AM CDT Body Mass Index 29.15 12/17/2008 11:31 AM CDT Plan of Treatment Health Maintenance Due Date Last Done Comments DTAP/TDAP/TD VACCINES (1 - Tdap) 1974 PNEUMOCOCCAL VACCINE 50+ YEARS (1 of 2 - PCV) 10/27/18 75 COLORECTAL SCREENING 2000 Colorectal Cancer Screening 2000 FIT-DNA Q 3 years 2000 FIT/FOBT Q 1 year 2000 Flex Sig/CT Colonography Q 5 years 2000 ZOSTER VACCINE (1 of 2) 2005 INFLUENZA VACCINE (#1) 2024 RSV VACCINE (60+ or ) (1 - 1-dose 75+ series) 2030 Medical Devices Implanted Type Area Animal Shelter Manager Device Identifier Shelf Expiration Date Model / Serial / Lot Synthes Modular Mini Fragment Implanted:Qty: 1 on 12/17/[address] [facility] Plate Right: Wrist [employer] [facility] 247.370 / / Description:LCP ADAPTION GRETCHEN TE 2.7MMload #[id number] Log [id number] - Odersun Modular Mini Fragment Lcp System - 1 - Screw Gerardo Self Tap 2.7x16mm 202.876 Implanted:Qty: 4 on 12/17/[address] [facility] Screw SYNTHES STRATEC 202.876 / / Log [id number] - Synthes Modular Mini Fragment Lcp System - 1 - Screw Gerardo Self Tap 2.7x18mm 202.878 Implanted:Qty: 5 on 12/17/[address] [facility] Screw [employer]ES [employer]ATEC 202.878 / / Log [id number] - Synthes Modular Mini Fragment Lcp System - 1 - Screw Gerardo Self Tap 2.7x20mm 202.88 Implanted:Qty: 1 on 12/17/[address] [facility] Screw [employer]AT[employer] 202.88 / / Log [id number] - Synthes Modular Mini Fragment Lcp System - 1 - Screw Gerardo Self Tap 2.7x22mm 202.882 Implanted:Qty: 1 on 12/17/[address] [facility] Screw [employer]ES [employer]AT[employer] 202.882 / / Log [id number] - Odersun Modular Mini Fragment Lcp System - 1 - Screw Gerardo Self Tap 2.7x24mm 202.884 Implanted:Qty: 1 on 12/17/2008 at [facility] Screw Right: Wrist [employer]ES [employer]AT[employer] 202.884 / / Description:load # [id number] Insurance [id number] [place] [address] DISABILITY DETERMINATION Advance Directives For more information, please contact: [phone] * Full Code (Latest Code Status on File) Date Activated Date Inactivated Comments 12/17/2008 11:47 AM 12/18/2008 2:02 AM * Full Code Date Activated Date Inactivated Comments 12/17/2008 11:27 AM 12/17/2008 11:47 AM * Full Code Date Activated Date Inactivated Comments 12/09/2008 10:37 PM 12/11/2008 5:50 PM
--- OUTSIDE RECORDS SUMMARY | 2025-03-16 23:15 | XMS_ITS | Clinical Summary ---
Author Organization 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 Name Role Phone Unavailable Primary Care Provider Unavailabl e Allergies No known active allergies Active Problems Problem Noted Date Diagnosed Date Eye injury 12/10/2008 Substance abuse 12/10/2008 Wrist fracture 12/10/2008 Contusion of eyelids and periocular area 009 Fracture of Hand, Right 12/10/2008 Superficial injury of cornea 12/10/2008 Localized traumatic opacities of cataract 2008 Conjunctival hemorrhage 12/10/2008 Family History Medical History Relation Name Comments Heart Disease Father Cancer Mother Healthy Son Relation Name Status Comments Father Mother Son Alive Social History Tobacco Use Types Packs/Day Years Used Date Smoking Tobacco: Every Day Cigarettes Comments:Quit smoking: Cut b ack to 1/3 ppd now Alcohol Use Standard Drinks/Week Comments No 0 (1 standard drink = 0.6 oz pur e alcohol) Sex and Gender Information Value Date Recorded Sex Assigned at Not on file Legal Sex Male 5:15 AM [employer] Gender Identity Not on file Sexual Orientation Not on file Plan of Treatment Health Maintenance Due Date Last Done Comments DTAP/TDAP/TD VACCINES (1 - Tdap) 1974 COLORECTAL SCREENING 2000 Colorectal Cancer Screening 2000 FIT-DNA Q 3 years 2000 FIT/FOBT Q 1 year 2000 Flex Sig/CT Colonography Q 5 years 2000 PNEUMOCOCCAL VACCINE 50+ YEARS (1 of 1 - PCV) 10/27/19 06 ZOSTER VACCINE (1 of 2) 2005 INFLUENZA VACCINE (#1) 2024 RSV VACCINE (60+ or ) (1 - 1-dose 75+ series) 2030 Medical Devices Implanted Type Area Toll Testboard Worker Device Identifier Shelf Expiration Date Model / Serial / Lot Synthes Modular Mini Fragment Implanted:Qty: 1 on 12/17/2008 Plate Right: Wrist Advebs [facility] 247.370 / / Description:LCP ADAPTION GRETCHEN TE 2.7MMload #[id number] Log [id number] - Synthes Modular Mini Fragment Lcp System - 1 - Screw Gerardo Self Tap 2.7x16mm 202.876 Implanted:Qty: 4 on 12/17/2008 Screw [employer]AT[employer] 202.876 / / Log [id number] - Synthes Modular Mini Fragment Lcp System - 1 - Screw Gerardo Self Tap 2.7x18mm 202.878 Implanted:Qty: 5 on 12/17/2008 Screw [employer] 202.878 / / Log [id number] - Synthes Modular Mini Fragment Lcp System - 1 - Screw Gerardo Self Tap 2.7x20mm 202.88 Implanted:Qty: 1 on 12/17/2008 Screw [employer] 202.88 / / Log [id number] - Synthes Modular Mini Fragment Lcp System - 1 - Screw Gerardo Self Tap 2.7x22mm 202.882 Implanted:Qty: 1 on 12/17/2008 Screw [employer] 202.882 / / Log [id number] - Synthes Modular Mini Fragment Lcp System - 1 - Screw Gerardo Self Tap 2.7x24mm 202.884 Implanted:Qty: 1 on 12/17/2008 Screw Right: Wrist [employer]AT[employer] 202.884 / / Description:load # [id number]
--- NOTE | 2025-03-16 23:39 | ECG_ITS ---
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
--- NOTE | 2025-03-16 23:44 | ED_ITS ---
HPI - Dizziness General: Chief Complaint: Dizziness Stated Complaint: BP Issues Time Seen by Provider: 03/16/25 23:06 History of Present Illness: HPI Narrative: Pt is a well appearing 69 M with history of stent placement in the heart 6?8 months ago and currently on blood pressure medication presents with dizziness upon standing. Patient reports blood pressure readings at home around 124/62, sometimes as low as 120/70. He states that he has felt the same way for the last several months pretty much every time he stands up and that he has learned to get up slowly and not move around too quickly to avoid passing out. The only thing different today is that a friend was concerned about him and felt he should be checked out. This friend thought that 120/60 was too low for blood pressure. He denies chest pain except for a recent episode attributed to travis consumption and what he calls heartburn. No shortness of breath, cough, fever, abdominal pain, or known lung problems. Patient has been less active over the past few days, spending time in bed, and drinks tea for hydration. No known history of COPD, congestive heart failure, or atrial fibrillation. 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 Related Data Previous Rx's ?Medication ?Instructions ?Recorded sildenafil 100 mg tablet (Viagra) 100 mg PO DAILY PRN sexual 03/10/24 activity #20 tabs amlodipine 10 mg tablet 10 mg PO DAILY #90 tabs 11/16 aspirin 81 mg tablet,delayed 81 mg PO DAILY #90 tabs 0 05/25/24 release atorvastatin 40 mg tablet 80 mg (2 x 40 mg) PO BEDTIME #90 05/25/24 tabs clopidogrel 75 mg tablet 75 mg PO DAILY #90 tabs 11/16 losartan 50 mg tablet 50 mg PO DAILY #90 tabs 11/16 metoprolol tartrate 50 mg tablet 50 mg PO BID #120 tab s 05/25/24 cyclobenzaprine 10 mg tablet See Rx Instructions .Rout e 02/11/25 .COMPLEX #60 tabs Allergies Allergy/AdvReac Type Severity Reaction Status Date / Time No Known Allergies Allergy Verified 07/22/24 15:29 PFSH ED PFS: Medical History Osteoarthritis Erectile dysfunction Social History Smoking and tobacco/nicotine status: current every day tobacco/nicotine user (7/day) cigarettes Physical Exam Const: COMMON NORMALS: no acute distress, patient oriented x3 and alert HENMT: COMMON NORMALS: normocephalic and atraumatic HEAD & SCALP: normocephalic and atraumatic Eye: COMMON NORMALS: Equal, round and reactive pupils present, EOMs intact bilaterally and no scleral icterus PUPIL: Yes Equal, round and reactive pupils present Resp: COMMON NORMALS: normal respiratory effort and No retractions Cardio: COMMON NORMALS: regular rate, regular rhythm and No murmurs present (Cardio) RATE: regular rate RHYTHM: regular rhythm GI: COMMON NORMALS: Normal to inspection, nondistended, normoactive bowel sounds present, Soft to palpation and non-tender PALPATION: Yes Soft to palpation Neuro: COMMON NORMALS: patient oriented x3 SENSORIUM/ORIENTATION: Yes alert Skin: COMMON NORMALS: no rashes or lesions noted GENERAL SKIN EXAM: no rashes or lesions noted Course Vital Signs: Vital signs: Vital Signs Temperature 97.6 F 03/16/25 23:08 Pulse Rate 92 03/16/25 23:08 Respiratory Rate 17 03/16/25 23:08 Blood Pressure 109/70 03/16/25 23:08 Pulse Oximetry 96 03/16/25 23:08 Oxygen Delivery Me thod Room Air 03/16/25 23:08 MDM - Dizziness Medical Decision Making In summary, patient is a well-appearing 69-year-old male from home seen for what appears to be orthostasis. He states that ever since starting blood pressure medication 6 months ago after having a stent placed, he has felt lightheadedness when he stands up too quickly. Tonight, he was at a friend's house who was concerned about him and asked him to come be checked out. He reassures me that tonight symptoms are no different than what he has felt over the last several months and EKG shows nothing acute. He was offered further testing but he graciously declines and will follow-up with primary care to see whether they would like to augment his blood pressure medications. He knows that he is always welcome back in the emergency department if symptoms get worse before outpatient follow-up No radiology studies performed this visit EKG Data EKG 1: Interpretation: Time?9588?normal sinus rhythm, rate of 88, no ST segment elevation or depression, no T wave inversions, poor R wave progression, QTc = 417 Discharge Plan Discharge Patient Disposition: Home Clinical Impression: Orthostasis Condition: Stable Prescriptions: No Action sildenafil [Viagra] 100 mg tablet 100 mg PO DAILY PRN (Reason: sexual activity) Qty: 20 3RF Rx Instructions: administer 30 minutes to 4 hours before activity cyclobenzaprine 10 mg tablet See Rx Instructions .ROUTE .COMPLEX Qty: 60 1RF Dose Instruction: TAKE 1 TABLET BY MOUTH TWICE DAILY NEEDED FOR MUSCLE SPASM Rx Instructions: TAKE 1 TABLET BY MOUTH TWICE DAILY NEEDED FOR MUSCLE SPASM losartan 50 mg Tablet 50 mg PO DAILY Qty: 90 3RF atorvastatin 40 mg Tablet 80 mg PO BEDTIME Qty: 90 3RF clopidogrel 75 mg Tablet 75 mg PO DAILY Qty: 90 3RF aspirin 81 mg Tablet,Delayed Release (Dr/Ec) 81 mg PO DAILY Qty: 90 3RF amlodipine 10 mg Tablet 10 mg PO DAILY Qty: 90 3RF metoprolol tartrate 50 mg Tablet 50 mg PO BID Qty: 120 3RF Discharge Orders: Discharge ED (Routine); Ordered 03/17/25 Ordered By: Noah Gorman Referrals: Patrick Samuel MD [Primary Care Provider, Family Practice] Discharge Diet: Usual diet Discharge Activity: Increase activity as tolerated Patient Instructions: Near Syncope (ED), Patient Portal & Max Instructions Activity Restrictions/Additional Instructions: Your EKG is reassuring. Your symptoms are consistent with orthostatic hypotension. Please make sure to stay well-hydrated especially in the heat of the summer and get up slowly from seated or lying down to make sure you do not get lightheaded and pass out. If your symptoms persist, it would be reasonable to talk to your primary care doctor about whether a change in blood pressure medication could decrease your symptoms. Print Language: Estonian Coding Level of Care Code ED Decorating And Assembly Supervisor for Maty Puckett
[2025-03-17 00:26] VITALS: BP 132/71; PULSE 89; RESP 18; O2SAT 95
== END 2025-03-17 00:29 | disposition home or self-care (01) ==
PROVIDERS: Emergency Provider Student in an Organized Health Care Education/Training Program; PCP Family Medicine
DX: I95.1 Orthostatic hypotension (principal); Z79.82 Long term (current) use of aspirin; F17.210 Nicotine dependence, cigarettes, uncomplicated
CPT/HCPCS: 93005; 99283